=== PATIENT | female | born 1955 | race Caucasian/White ===

== ENCOUNTER 2024-03-01 05:37 | Day surgery (SDC) | payer MEDICARE, BC ==
[2024-02-24 09:39] LABS: BASOPHILS # (AUTO) 0.1 X10'3 (0-0.2); EOSINOPHILS # (AUTO) 0.1 X10'3 (0-0.9); EOSINOPHILS % (AUTO) 1.5 % (0-6); LYMPHOCYTES # (AUTO) 2.8 X10'3 (1.1-4.8); LYMPHOCYTES % (AUTO) 38.7 % (21-51); MEAN CORPUSCULAR HEMOGLOBIN 30.6 PG (27.0-31.0); MEAN CORPUSCULAR HGB CONC 32.2 g/dL (33.0-36.5); MEAN CORPUSCULAR VOLUME 95.1 FL (78-98); MEAN PLATELET VOLUME 9.6 FL (7.4-10.4); MONOCYTES % (AUTO) 13.4 % (2-12); NEUTROPHILS # (AUTO) 3.2 X10'3 (1.8-7.7); NEUTROPHILS % (AUTO) 45.4 % (42-75); PRE OP HEMATOCRIT 33.8 % (35.0-45.0); PRE OP PLATELET COUNT 263 X10'3 (140-440); PRE OP WHITE BLOOD COUNT 7.1 10'3 (4.8-10.8); RED BLOOD COUNT 3.55 X10'6 (4.20-5.60); RED CELL DISTRIBUTION WIDTH 16.1 % (11.5-14.5)
[2024-02-24 09:43] LABS: PRE OP HEMOGLOBIN 10.9 g/dL (12.0-16.0)
[2024-02-24 10:36] LABS: ALBUMIN 3.7 G/DL (3.4-5.0); ALBUMIN/GLOBULIN RATIO 0.9 (1.1-1.5); ALKALINE PHOSPHATASE 81 IU/L (46-116); BLOOD UREA NITROGEN 15 MG/DL (7-18); BUN/CREATININE RATIO 17.6 (10.0-20.0); CALCIUM 9.4 MG/DL (8.5-10.1); CHLORIDE 105 MMOL/L (99-107); CREATININE 0.85 MG/DL (0.40-0.90); PRE OP ALT 24 U/L (30-65); PRE OP ANION GAP 11 (8-16); PRE OP AST 16 U/L (10-37); PRE OP BILIRUB, TOTAL 0.5 MG/DL (0.0-1.0); PRE OP GLUCOSE 120 MG/DL (70-104); PRE OP POTASSIUM 4.1 MMOL/L (3.4-5.1); PRE OP SODIUM 142 MMOL/L (135-145); TOTAL CARBON DIOXIDE 25.8 MMOL/L (24-32); TOTAL PROTEIN 7.6 G/DL (6.4-8.2); eGFR 66 ML/MIN
[~2024-03-01] VITALS: Ht 162.6 cm; Wt 83.0 kg
[2024-03-01] MEDS: famotidine 20mg tablet PO ONE (05:30)
[~2024-03-01 05:37] MED LIST: AMLO5TAB16 PO; ASCO100031 PO; ASPI-1397 PO; ATOR40TA72 PO; CHOL50004 PO; CYAN50007 PO; GABA300T28 PO; LEVO100T9 PO; LOSA1TAB39 PO; MAGN400T50 PO; MELO-102 PO; METF-1203 PO; OMEP20CA16 PO; ringers solution, lacted 1,000 ML IV SCH
[2024-03-01] MEDS: cefazolin 2gm/D5W 100mL 100 ML IV ONE (05:49)
[2024-03-01 05:50] VITALS: RESP 15; O2SAT 97
[2024-03-01 06:37] VITALS: BP 116/63; PULSE 88; RESP 16; TEMP 98.2; O2SAT 96
[2024-03-01] MEDS ORDERED: midazolam 1 mg/ML 2ml injection ONE (08:14)
[2024-03-01] MEDS ORDERED: fentaNYL/PF 50MCG/1 ML 2ML syringe ONE ×2 (08:14→08:39)
[2024-03-01] MEDS: BUPIVAcaine/PF 2.5mg/ml (0.25%) 10ml vial ONE (08:39)
[2024-03-01] MEDS: LIDOcaine 2% (20mg/ml) 5ml vial ONE (08:40)
[2024-03-01] MEDS ORDERED: LIDOcaine 2% (20mg/ml) 5ml vial ONE (08:44)
[2024-03-01] MEDS ORDERED: propofol inj 20 ML IV ONE (08:44)
[2024-03-01 08:49] VITALS: BP 130/81; PULSE 90; RESP 16; O2SAT 98
[2024-03-01 09:00] VITALS: BP 127/85; PULSE 79; RESP 17; O2SAT 96
[2024-03-01 09:10] VITALS: BP 130/74; PULSE 85; RESP 20; O2SAT 96
[2024-03-01 09:20] VITALS: BP 135/72; PULSE 83; RESP 18; O2SAT 96
== END 2024-03-01 09:29 | disposition home or self-care (01) ==
LOC: PRE-OP 05:37
PROVIDERS: ATTEND Orthopaedic Surgery Hand Surgery
DX: G56.01 Carpal tunnel syndrome, right upper limb (principal); I10 Essential (primary) hypertension; E11.9 Type 2 diabetes mellitus without complications; K21.9 Gastro-esophageal reflux disease without esophagitis; E78.5 Hyperlipidemia, unspecified; I20.9 Angina pectoris, unspecified; I25.2 Old myocardial infarction; E07.9 Disorder of thyroid, unspecified; Z86.73 Personal history of transient ischemic attack (TIA), and cerebral infarction without residual deficits; Z87.440 Personal history of urinary (tract) infections; Z79.82 Long term (current) use of aspirin; Z79.84 Long term (current) use of oral hypoglycemic drugs; Z79.899 Other long term (current) drug therapy; Z90.710 Acquired absence of both cervix and uterus; Z98.890 Other specified postprocedural states; Z88.2 Allergy status to sulfonamides; Z88.8 Allergy status to other drugs, medicaments and biological substances
CPT/HCPCS: 36415; 64721; 80053; 82948; 85025; A4215; A6449; J0690; J2001; J2250; J2704; J3010; J3490; J7030; J7120; Z7506; Z7512; Z7610